=== PATIENT | male | born 1950 | race Hispanic/Latino ===

== ENCOUNTER → 2021-05-01 | Outpatient (CLI) | payer OTHER | END | disposition home or self-care (01) | LOC: SHCH 14:45 | PROVIDERS: ATTEND Internal Medicine Cardiovascular Disease | DX: I87.2 Venous insufficiency (chronic) (peripheral) (principal); K21.9 Gastro-esophageal reflux disease without esophagitis | CPT/HCPCS: 93970 ==

== ENCOUNTER → 2021-05-30 | Outpatient (CLI) | payer OTHER | END | disposition home or self-care (01) | LOC: SHCH 08:00 | PROVIDERS: ATTEND Internal Medicine Cardiovascular Disease | DX: I51.7 Cardiomegaly (principal); R55 Syncope and collapse; E78.5 Hyperlipidemia, unspecified; E11.9 Type 2 diabetes mellitus without complications | CPT/HCPCS: 93306; 93356 ==

== ENCOUNTER → 2021-09-25 | Outpatient (CLI) | payer OTHER ==
[~2021-09-25] VITALS: Ht 170.2 cm; Wt 117.5 kg
[~2021-09-25] MED LIST: REGADENOSON 0.4 MG/5 ML PF SYG IVP SCH
== END | disposition home or self-care (01) ==
LOC: SHCH 08:14
PROVIDERS: ATTEND Internal Medicine Cardiovascular Disease
DX: R07.9 Chest pain, unspecified (principal); R06.09 Other forms of dyspnea
CPT/HCPCS: 78452; 93017; 96374; A9500 ×2; J2785

== ENCOUNTER 2022-03-11 12:46 | Emergency (ER) | payer OTHER ==
[~2022-03-11] VITALS: Ht 170.2 cm; Wt 114.3 kg
[2022-03-11 13:43] LABS: BASOPHILS % (AUTO) 0.8 % (0.0-5.0); EOSINOPHILS % (AUTO) 1.3 % (0.0-8.0); HEMATOCRIT 40.2 % (42-54); LYMPHOCYTES % (AUTO) 32.1 % (21.0-51.0); MEAN CORPUSCULAR HGB CONC 33.1 g/dL (32.0-36.0); MEAN CORPUSCULAR VOLUME 90.5 fL (79-99); MONOCYTES % (AUTO) 8.2 % (3.0-13.0); NEUTROPHILS % (AUTO) 56.7 % (40.0-77.0); PLATELET COUNT (AUTO) 155 K/uL (130-400); RED BLOOD CELL COUNT(AUTO) 4.44 MIL/uL (4.50-6.20); WHITE BLOOD COUNT (AUTO) 5.3 K/uL (4.8-10.8)
[2022-03-11 13:54] LABS: CREATININE 0.9 mg/dL (0.5-1.5); POTASSIUM 3.6 mmol/L (3.5-5.1)
[2022-03-11 13:58] LABS: ALBUMIN 3.3 g/dL (3.5-5.0); BILIRUBIN,TOTAL 0.5 mg/dL (0.2-1.0); TOTAL PROTEIN, SERUM 6.6 g/dL (6.0-8.3)
[2022-03-11] MEDS ORDERED: CLIN-26 PO (15:54)
[2022-03-11 16:23] VITALS: BP 142/80
== END 2022-03-11 16:25 | disposition home or self-care (01) ==
LOC: EDH 12:46
DX: S81.802A Unspecified open wound, left lower leg, initial encounter (principal); E11.9 Type 2 diabetes mellitus without complications; E78.00 Pure hypercholesterolemia, unspecified; I10 Essential (primary) hypertension; Z90.79 Acquired absence of other genital organ(s); X58.XXXA Exposure to other specified factors, initial encounter; Y93.89 Activity, other specified; Y92.89 Other specified places as the place of occurrence of the external cause; Y99.8 Other external cause status
CPT/HCPCS: 36415; 80053; 82948; 85025; 93971

== ENCOUNTER → 2023-12-16 | Outpatient (CLI) | payer OTHER ==
[~2023-12-16] MED LIST changes: +CLIN-26 PO; -REGADENOSON 0.4 MG/5 ML PF SYG IVP SCH
[2023-12-16] MEDS: REGADENOSON 0.4 MG/5 ML PF SYG IVP ONE (16:19)
== END | disposition home or self-care (01) ==
LOC: SHCH 08:48
PROVIDERS: ATTEND Internal Medicine Cardiovascular Disease
DX: I25.119 Atherosclerotic heart disease of native coronary artery with unspecified angina pectoris (principal); R07.9 Chest pain, unspecified
CPT/HCPCS: 78452; 96374; 93017; J2785; A9500 ×2

== ENCOUNTER → 2024-07-16 | Outpatient (CLI) | payer OTHER | END | disposition home or self-care (01) | LOC: SHCH 11:04 | PROVIDERS: ATTEND Internal Medicine Cardiovascular Disease | DX: I35.8 Other nonrheumatic aortic valve disorders (principal); I51.89 Other ill-defined heart diseases; R94.31 Abnormal electrocardiogram [ECG] [EKG]; I82.210 Acute embolism and thrombosis of superior vena cava | CPT/HCPCS: 93306; 93356 ==

== ENCOUNTER → 2024-11-08 | Outpatient (CLI) | payer OTHER ==
[~2024-11-08] MED LIST changes: +IOHEXOL-350 75 ML VIAL IV ONE
--- NOTE | 2024-11-08 08:47 | HMCIMG ---
CT CHEST WWO PE HISTORY: Pulmonary embolism COMPARISON: None TECHNIQUE: CT angiography of the chest was performed. The study was performed using angiographic technique with maximum intensity projection reconstruction images. Patient was given 100 cc of Omnipaque through intravenous route. FINDINGS: No CT evidence of filling defect is seen to suggest pulmonary embolus. No CT evidence of aortic dissection is seen. No evidence of parenchymal disease is seen. No CT evidence of pleural effusion or pericardial effusion is seen. The heart is enlarged. No evidence of adrenal mass is seen. Degenerative changes of the spine are noted. Fatty changes of the liver are noted. Liver measures 14.5 cm. IMPRESSION: 1. No CT evidence of acute pulmonary embolus is seen. CT was performed with one or more following dose reduction techniques: automated exposure control, adjustment of the mA and kv according to patient's size, or use of a iterative reconstruction technique.
== END | disposition home or self-care (01) ==
LOC: RAH 07:29
PROVIDERS: ATTEND Internal Medicine Cardiovascular Disease
DX: I26.99 Other pulmonary embolism without acute cor pulmonale (principal); I51.7 Cardiomegaly; M47.814 Spondylosis without myelopathy or radiculopathy, thoracic region; K76.0 Fatty (change of) liver, not elsewhere classified
CPT/HCPCS: 71270; Q9967

== ENCOUNTER → 2024-12-21 | Outpatient (CLI) | payer OTHER ==
[~2024-12-21] MED LIST changes: -IOHEXOL-350 75 ML VIAL IV ONE
--- NOTE | 2024-12-22 08:43 | HMCSR ---
APPROVED REPORT Bilateral Lower Extremity Venous Study for Venous Competence., DVT. Indications i73.9 Vein Imaging CFV (R): Normal flow, augmentation and compression. No evidence of DVT. 10.4mm 1111ms of reflux. SFJ (R): Normal flow, augmentation and compression. No evidence of DVT. FEM (R): Normal flow, augmentation and compression. No evidence of DVT. POP (R): Normal flow, augmentation and compression. No evidence of DVT. DFV (R): Normal flow, augmentation and compression. No evidence of DVT. PTV (R): Normal flow, augmentation and compression. No evidence of DVT. GSV (R): Peroneals (R): Normal flow, augmentation and compression. No evidence of DVT. CFV (L): Normal flow, augmentation and compression. No evidence of DVT. 11.2mm 1294ms of reflux. SFJ (L): Normal flow, augmentation and compression. No evidence of DVT. FEM (L): Normal flow, augmentation and compression. No evidence of DVT. POP (L): Normal flow, augmentation and compression. No evidence of DVT. DFV (L): Normal flow, augmentation and compression. No evidence of DVT. PTV (L): Normal flow, augmentation and compression. No evidence of DVT. Peroneals (L): Normal flow, augmentation and compression. No evidence of DVT. Technologist Impression Deep Veins of bilateral lower extremities appear patent and compressible without thrombus. Deep vein reflux seen in RCFV and LCFV, LT. SFV mid to LT. Pop V. No significant superficial venous insufficiency seen. RGSV junction 4.8mm 0.0ms thigh 2.7mm 0.0ms knee 1.9mm 0.0ms calf 2.5mm 0.0ms RSSV Prox 2.1mm 0.0ms Mid 1.4mm 0.0ms LGSV junction 5.2mm 372ms thigh 3.0mm 0.0ms knee 2.5mm 0.0ms calf 3.0mm 0.0ms (Cluster of Veins) LSSV Prox 2.7mm 0.0ms Mid 1.9mm 0.0ms Conclusion Severe deep venous reflux noted bilaterally greater than 1000 ms Consider formal venography with intravascular ultrasound if iliac vein compression is suspected Conclusion Severe deep venous reflux noted bilaterally greater than 1000 ms Consider formal venography with intravascular ultrasound if iliac vein compression is suspected
--- NOTE | 2024-12-22 08:43 | HMCSR ---
APPROVED REPORT Laterality: Bilateral Indications i73.9 VELOCITY AND DOPPLER WAVEFORM ANALYSIS BATTERY STACKER (R) 74.5cm/sec, Biphasic, BATTERY STACKER (L) 75.2cm/sec, Triphasic, Prof Fem Art. (R) 49.0cm/sec, Biphasic, Prof Fem Art. (L) 52.2cm/sec, Triphasic, Fem Art Prox. (R) 73.8cm/sec, Biphasic, Fem Art Prox. (L) 86.5cm/sec, Triphasic, Fem Art Mid. (R) 82.5cm/sec, Biphasic, Fem Art Mid. (L) 69.3cm/sec, Triphasic, Fem Art Dist (R) 59.2cm/sec, Biphasic, Fem Art Dist. (L) 50.5cm/sec, Triphasic, Pop Art(AK) (R) 40.0cm/sec, Biphasic, Pop Art (AK) (L) 55.0cm/sec, Biphasic, Pop Art (Fossa)(R) 43.6cm/sec, Biphasic, Pop Art (Fossa) (L) 57.8cm/sec, Biphasic, Pop Art(BK) (R) 57.3cm/sec, Biphasic, Pop Art (BK) (L) 51.0cm/sec, Biphasic, ARTIFICIAL BREEDING RANCH SUPERVISOR Prox. (R) 56.6cm/sec, Biphasic, ARTIFICIAL BREEDING RANCH SUPERVISOR Prox. (L) 57.1cm/sec, Biphasic, ARTIFICIAL BREEDING RANCH SUPERVISOR Mid. (R) 72.5cm/sec, Biphasic, ARTIFICIAL BREEDING RANCH SUPERVISOR Mid. (L) 66.9cm/sec, Biphasic, ARTIFICIAL BREEDING RANCH SUPERVISOR Dist. (R) 71.1cm/sec, Biphasic, ARTIFICIAL BREEDING RANCH SUPERVISOR Dist. (L) 61.7cm/sec, Biphasic, Per Art Prox. (R) 57.8cm/sec, Biphasic, Per Art Prox. (L) 61.2cm/sec, Biphasic, Per Art Mid. (R) 48.2cm/sec, Biphasic, Per Art Mid. (L) 47.3cm/sec, Biphasic, Per Art Dist. (R) 36.3cm/sec, Biphasic, Per Art Dist. (L) 66.1cm/sec, Biphasic, TREE Prox. (R) 22.4cm/sec, Biphasic, TREE Prox. (L) 30.3cm/sec, Biphasic, TREE Mid. (R) 19.6cm/sec, Biphasic TREE Mid. (L) 63.9cm/sec, Biphasic, TREE Dist. (R) 42.1cm/sec, Biphasic, TREE Dist. (L) 47.3cm/sec, Biphasic, Technologist Impression No evidence of significant arterial insufficiency of bilateral lower extremities. Multiphasic waveforms seen in bilateral lower extremities. Conclusion No evidence of significant arterial insufficiency of bilateral lower extremities. Conclusion No evidence of significant arterial insufficiency of bilateral lower extremities.
== END | disposition home or self-care (01) ==
LOC: SHCH 09:15
PROVIDERS: ATTEND Internal Medicine Cardiovascular Disease
DX: I87.2 Venous insufficiency (chronic) (peripheral) (principal); I73.9 Peripheral vascular disease, unspecified; R07.9 Chest pain, unspecified; I87.1 Compression of vein; Z79.899 Other long term (current) drug therapy
CPT/HCPCS: 93925; 93970